=== PATIENT | male | born 1935 | race Two or more races ===

== ENCOUNTER 2017-06-23 10:38 | Outpatient (CLI) | payer OTHER ==
[~2017-06-23 10:38] MED LIST: PROTONIX40 MG PO; ZOFRAN4 MG PO
== END 2017-06-23 10:51 | disposition home or self-care (01) ==
LOC: RAD 501 10:38
DX: M12.562 Traumatic arthropathy, left knee (principal)

== ENCOUNTER 2018-01-26 09:58 | Outpatient (CLI) | payer OTHER | END 2018-01-26 10:06 | disposition home or self-care (01) | LOC: RAD 501 09:58 | DX: Z41.9 Encounter for procedure for purposes other than remedying health state, unspecified (principal) ==

== ENCOUNTER → 2019-01-19 | Outpatient (CLI) | payer OTHER | END | disposition home or self-care (01) | LOC: SONOGRAMA 01-15 12:14 | DX: R10.84 Generalized abdominal pain (principal) ==

== ENCOUNTER 2019-02-02 07:17 | Outpatient (CLI) | payer OTHER | END 2019-02-02 08:08 | disposition home or self-care (01) | LOC: NUCLEAR 07:17 | DX: R07.89 Other chest pain (principal); I11.9 Hypertensive heart disease without heart failure | CPT/HCPCS: 78452; 93017; A9500; J0153 ==

== ENCOUNTER 2019-10-14 08:12 | Outpatient (CLI) | payer OTHER | END 2019-10-14 08:13 | disposition home or self-care (01) | LOC: TOM 08:12 | PROVIDERS: ATTEND Internal Medicine Gastroenterology | DX: R10.84 Generalized abdominal pain (principal); K50.918 Crohn's disease, unspecified, with other complication | CPT/HCPCS: 74160; Q9965 ==

== ENCOUNTER → 2020-05-09 11:11 | Outpatient (CLI) | payer OTHER | END | disposition home or self-care (01) | LOC: PPH VACUNA 11:11 | PROVIDERS: ATTEND Emergency Medicine Pediatric Emergency Medicine | DX: Z23 Encounter for immunization (principal) ==

== ENCOUNTER 2021-07-18 09:17 | Outpatient (CLI) | payer OTHER | END 2021-07-18 09:24 | disposition home or self-care (01) | LOC: SONOGRAMA 09:17 | PROVIDERS: ATTEND Internal Medicine Gastroenterology | DX: R10.84 Generalized abdominal pain (principal) ==

== ENCOUNTER 2023-06-17 08:13 | Outpatient (CLI) | payer OTHER | END 2023-06-17 08:21 | disposition home or self-care (01) | LOC: TOM 08:13 | PROVIDERS: ATTEND Internal Medicine Gastroenterology | DX: R10.84 Generalized abdominal pain (principal); R63.4 Abnormal weight loss | CPT/HCPCS: 74177; Q9965 ==